=== PATIENT | male | born 1985 | race Caucasian/White ===

== ENCOUNTER 2020-12-27 04:53 | Emergency (ER) | payer OTHER ==
[2020-12-27 05:26] VITALS: BP 117/66; PULSE 90; TEMP 99.2; BMI 22.9
== END 2020-12-27 06:00 | disposition home or self-care (01) ==
LOC: JER 04:53
DX: R06.02 Shortness of breath (principal)
CPT/HCPCS: 71046-TC-FY; 99284-25; C9803; U0003

== ENCOUNTER 2023-06-01 19:37 | Emergency (ER) | payer OTHER ==
[2023-06-01 19:47] VITALS: BP 129/73; PULSE 95; RESP 17; TEMP 97.7; BMI 25.2
[2023-06-01] MEDS ORDERED: ACETAMINOPHEN 500 MG TABLET (FP) PO ONE (20:10)
[2023-06-01] MEDS ORDERED: KETOROLAC TROMETHAMINE 30 MG/1 ML VIAL IM ONE (20:11)
[2023-06-01] MEDS ORDERED: ACETAMINOPHEN 500 MG TABLET (FP) ONE (20:12)
[2023-06-01] MEDS ORDERED: KETOROLAC TROMETHAMINE 60 MG/2 ML VIAL ONE (20:13)
== END 2023-06-01 21:47 | disposition home or self-care (01) ==
LOC: JERFT 19:37
PROC: 2W3SX1Z Immobilization of Right Foot using Splint (ICD-10-PCS; principal; 2023-06-01)
PROC: 3E0233Z Introduction of Anti-inflammatory into Muscle, Percutaneous Approach (ICD-10-PCS; 2023-06-01)
DX: S82.61XA Displaced fracture of lateral malleolus of right fibula, initial encounter for closed fracture (principal); S82.831A Other fracture of upper and lower end of right fibula, initial encounter for closed fracture; W01.0XXA Fall on same level from slipping, tripping and stumbling without subsequent striking against object, initial encounter; Y99.0 Civilian activity done for income or pay
CPT/HCPCS: 73610-TC-RT-FY; 73630-TC-RT-FY; 99284-25